=== PATIENT | female | born 1990 | race American Indian/Alaskan Native ===

== ENCOUNTER 2016-09-06 23:17 | Emergency (ER) | payer BC, MEDICAID ==
[2016-09-07 00:47] VITALS: BP 131/84
[2016-09-07 01:18] LABS: Basophils % (Auto) 0.4 % (0.0-1.8); Eosinophils % (Auto) 0.3 % (0.0-4.3); Mean Corpuscular HGB Conc 33 % (30-34); Mean Corpuscular Hemoglobin 30 pg (28-32); Mean Corpuscular Volume 90 fl (79-97); Platelet Count 246 K/mm3 (140-440); Red Blood Count 3.68 M/mm3 (3.65-5.03); Red Cell Distribution Width 13.4 % (13.2-15.2); White Blood Count 12.1 K/mm3 (4.5-11.0)
[2016-09-07 01:28] LABS: Anion Gap 14 mmol/L; BUN/Creatinine Ratio 14.28; Blood Urea Nitrogen 10 mg/dL (7-17); Calcium 9.2 mg/dL (8.4-10.2); Carbon Dioxide 27 mmol/L (22-30); Chloride 101.8 mmol/L (98-107); Glucose 99 mg/dL (65-100); Potassium 3.5 mmol/L (3.6-5.0); Sodium 139 mmol/L (137-145)
--- NOTE | 2016-09-07 01:38 | Ultrasound Report ---
FINAL REPORT PROCEDURE: US OB \T\gt; = 14 WEEKS FETUS TECHNIQUE: Real-time transabdominal sonography of the uterus, placenta, amniotic fluid, adnexa, and fetus was performed with image documentation. Measurements were obtained to determine age/size. M-mode Doppler was used to document heartbeat. CPT 34682 HISTORY: abdominal pain COMPARISON: No prior studies are available for comparison. FINDINGS: ADDITIONAL GESTATION: None. GENERAL: IUP: Single living intrauterine . Position: Vertex Placental position: Anterior, without previa. Amniotic fluid volume: Normal. MATERNAL: Uterus: Within normal limits. Cervical length: 3.1 cm. Internal Os: Closed. FETUS: Heart rate and rhythm: 125 beats per minute anatomic survey: Not performed on this study MEASUREMENTS: BPD: 4.1 centimeter HC: 16 centimeter AC: 13.9 centimeter FL: 2.8 centimeter Mean Gestational Age (composite criteria): 18 weeks 6 days Ratio biometry: Normal. Estimated Weight: 263 grams. Interval growth: Appropriate. Estimated Due Date (earliest scan): 02/02/2017 IMPRESSION: Single intrauterine gestation at 18 weeks 6 days. Estimated due date: 02/02/2017. Normal survey with appropriate growth.
[2016-09-07 01:58] LABS: Bacteria,Urine 1+ /HPF (Negative); Bilirubin,Urine NEG (Negative); Blood,Urine MOD (Negative); Ketones,Urine NEG (Negative); Leukocyte Esterase,Urine NEG (Negative); Mucus,Urine FEW /HPF; Nitrite,Urine NEG (Negative); Protein,Urine <15 mg/dL mg/dL (Negative); Urobilinogen,Urine < 2.0 mg/dL (<2.0)
== END 2016-09-07 04:03 | disposition left against medical advice (07) ==
LOC: ED 23:17
DX: O26.892 Other specified pregnancy related conditions, second trimester (principal); R10.9 Unspecified abdominal pain; Z53.21 Procedure and treatment not carried out due to patient leaving prior to being seen by health care provider; Z3A.18 18 weeks gestation of pregnancy
CPT/HCPCS: 36415; 76805; 80048; 81001; 85025